=== PATIENT | male | born 1965 | race Caucasian/White ===

== ENCOUNTER 2016-09-30 17:22 | Emergency (ER) | payer SELFPAY ==
[~2016-09-30] VITALS: Ht 170.2 cm; Wt 85.0 kg
--- NOTE | 2016-09-30 17:38 | PD ---
HPI . here under Chaney act/alcohol intoxication Chief Complaint: alcohol intoxication Time Seen by Provider: 17:38 Travel History International Travel<30 days: No Contact w/Intl Traveler<30days: No Traveled to known affect area: No History of Present Illness HPI 51-year-old male here under Chaney act secondary alcohol intoxication. Patient was found outside of [employer]. Apparently he reported that he had no one to come and get him. Patient is visibly intoxicated. On questioning he denies any physical complaints. He tells me he is in no type of pain. He reports that he's had too much to drink. He denies usage of any other substances such as marijuana, crack cocaine, K2 etc. PFSH Past Medical History Medical History: Denies Significant Hx Social History Alcohol Use: Yes Tobacco Use: Yes Substance Use: No Allergies-Medications (Allergen,Severity, Reaction): Coded Allergies: No Known Allergies (Unverified , 09/30/16) Reported Meds & Prescriptions Reported Meds & Active Scripts Active No Active Prescriptions or Reported Medications Review of Systems General / Constitutional: No: Fever Eyes: No: Visual changes HENT: No: Headaches Cardiovascular: No: Chest Pain or Discomfort Respiratory: No: Shortness of Breath Gastrointestinal: No: Abdominal Pain Genitourinary: No: Dysuria Musculoskeletal: No: Pain Skin: No Rash Neurologic: No: Weakness Psychiatric: Positive: Other (alcohol intoxication ), No: Depression Endocrine: No: Polydipsia Hematologic/Lymphatic: No: Easy Bruising Physical Exam Narrative GENERAL: AAO x 3, no acute distress, Well-nourished, well-developed patient. SKIN: Warm and dry. No visible rashes or bruising. HEAD: Normocephalic and atraumatic. EYES: No scleral icterus. No injection or drainage. EOM intact, PERRLA ENT: No nasal drainage noted. Mucous membranes pink. Airway patent. NECK: Supple, trachea midline. No JVD. no tenderness CARDIOVASCULAR: Regular rate and rhythm without murmurs, gallops, or rubs. RESPIRATORY: Breath sounds equal bilaterally. No accessory muscle use. No rhonchi or rales. GASTROINTESTINAL: Abdomen soft, non-tender, nondistended. EXTREMITIES: No cyanosis or edema. BACK: No obvious deformity. NEURO: CN II-12 intact, PSYCH: AAO x 3, acutely intoxicated Data Data Last Documented VS Vital Signs Date Time Temp Pulse Resp B/P Pulse Ox O2 Delivery O2 Flow Rate FiO2 09/30/16 17:51 98.7 84 20 147/93 99 MDM Medical Decision Making Medical Screen Exam Complete: Yes Emergency Medical Condition: Yes Medical Record Reviewed: Yes Differential Diagnosis alcohol intoxication, alcohol abuse, drug induced mood disorder Narrative Course 51-year-old male here. Here under Chaney act for acute alcohol intoxication. He has no medical complaints. Patient has been medically cleared and will sleep it off. Once he is sober, he can be discharged. I discussed this with the nurse. Diagnosis Primary Impression: Alcohol intoxication Qualified Code: F10.920 - Alcohol intoxication, uncomplicated Patient Instructions: General Instructions Additional Instructions: Try to refrain from drinking too much alcohol. Follow-up with your primary care provider. Scripts No Active Prescriptions or Reported Meds Condition: Fernanda Byrnes Sep 30, 2016 17:38
[2016-09-30 17:51] VITALS: BP 147/93; PULSE 84; RESP 20; TEMP 98.7; O2SAT 20; O2SAT 99
[2016-09-30 19:40] VITALS: BP 127/68
--- NOTE | 2016-09-30 20:02 | PD ---
Data Data Last Documented VS Vital Signs Date Time Temp Pulse Resp B/P Pulse Ox O2 Delivery O2 Flow Rate FiO2 09/30/16 19:40 60 15 127/68 96 09/30/16 17:51 98.7 MDM Supervised Visit with ANDREW: Yes Narrative Course The history, exam, and medical decision-making in the associated mid-level provider note were completed with my assistance. I reviewed and agree with the findings presented. I attest that I had a [id number] encounter with the patient on the same day, and personally performed and documented my assessment and findings in the medical record. *My assessment and Findings: 51-year-old man was brought in by PD because he was found intoxicated in a liquor store. He has no somatic complaints. No evidence of injury. He is observed for a short while in the emergency department. He is able to cannulate without difficulty and is stable for discharge. Counseled to not drink so much. Diagnosis Primary Impression: Alcohol intoxication Qualified Code: F10.920 - Alcohol intoxication, uncomplicated Patient Instructions: General Instructions, Alcohol Intoxication (ED), Alcohol Dependence (ED) Departure Forms: Tests/Procedures Additional Instruction: Try to refrain from drinking too much alcohol. Follow-up with your primary care provider. Scripts No Active Prescriptions or Reported Meds Disposition: 01 DISCHARGE HOME Condition: Stable Balta Farfan MD Sep 30, 2016 20:02
== END 2016-09-30 19:48 | disposition home or self-care (01) ==
LOC: NEPD 17:22
DX: F10.920 Alcohol use, unspecified with intoxication, uncomplicated (principal)
CPT/HCPCS: 99283